=== PATIENT | male | born 1975 | race Caucasian/White ===

== ENCOUNTER 2016-08-23 22:07 | Emergency (ER) | payer OTHER ==
[2016-08-24 01:58] VITALS: BP 145/85
== END 2016-08-24 01:58 | disposition home or self-care (01) ==
LOC: ED 22:07
DX: L60.0 Ingrowing nail (principal); B35.1 Tinea unguium; L03.031 Cellulitis of right toe
CPT/HCPCS: 90715; J1885; J2001; J3490